=== PATIENT | female | born 1990 | race Caucasian/White ===

== ENCOUNTER 2021-11-24 15:24 | Inpatient (IN) | payer OTHER ==
[~2021-11-24] VITALS: Ht 157.5 cm; Wt 59.0 kg
[2021-11-24] MEDS ORDERED: PRENATAL TABLE1 EAC3 (22:17)
[2021-11-24] MEDS ORDERED: FOLIC ACID0.8 M1 (22:18)
== END 2021-11-26 08:39 | disposition home or self-care (01) | DRG 833 ==
LOC: NST 15:24 → LDR 17:48 → OB/GYN 11-25 13:47
PROVIDERS: ADMIT Obstetrics & Gynecology; ATTEND Obstetrics & Gynecology
PROC: 4A1HXCZ Monitoring of Products of Conception, Cardiac Rate, External Approach (ICD-10-PCS; principal; 2021-11-24)
DX: O47.03 False labor before 37 completed weeks of gestation, third trimester (principal); Z3A.35 35 weeks gestation of pregnancy; Z20.822 Contact with and (suspected) exposure to COVID-19

== ENCOUNTER 2021-12-03 08:17 | Outpatient (CLI) | payer OTHER ==
[~2021-12-03 08:17] MED LIST: FOLIC ACID0.8 M1; PRENATAL TABLE1 EAC3
== END 2021-12-03 08:57 | disposition home or self-care (01) ==
LOC: NST 08:17
PROVIDERS: ATTEND Obstetrics & Gynecology
DX: Z23 Encounter for immunization (principal)

== ENCOUNTER 2021-12-10 10:50 | Outpatient (CLI) | payer OTHER | END 2021-12-10 11:34 | disposition home or self-care (01) | LOC: NST 10:50 | PROVIDERS: ATTEND Obstetrics & Gynecology Maternal & Fetal Medicine | DX: Z34.83 Encounter for supervision of other normal pregnancy, third trimester (principal) ==

== ENCOUNTER 2021-12-27 00:15 | Outpatient (CLI) | payer OTHER ==
[2021-12-27] MEDS ORDERED: IRON236 MG (00:34)
== END 2021-12-27 07:39 | disposition home or self-care (01) ==
LOC: OBS/DEL 00:15
PROVIDERS: ATTEND Obstetrics & Gynecology
DX: O26.893 Other specified pregnancy related conditions, third trimester (principal); Z3A.39 39 weeks gestation of pregnancy; R10.2 Pelvic and perineal pain

== ENCOUNTER 2021-12-29 06:35 | Inpatient (IN) | payer OTHER ==
[~2021-12-29] VITALS: Ht 157.5 cm; Wt 59.0 kg
[~2021-12-29 06:35] MED LIST changes: +IRON236 MG
== END 2021-12-31 13:06 | disposition home or self-care (01) | DRG 807 ==
LOC: LDR 06:35 → OB/GYN 08:41
PROVIDERS: ADMIT Obstetrics & Gynecology; ATTEND Obstetrics & Gynecology
PROC: 10E0XZZ Delivery of Products of Conception, External Approach (ICD-10-PCS; principal; 2021-12-29)
PROC: 4A1HXCZ Monitoring of Products of Conception, Cardiac Rate, External Approach (ICD-10-PCS; 2021-12-29)
DX: O80 Encounter for full-term uncomplicated delivery (principal); Z37.0 Single live birth; Z3A.39 39 weeks gestation of pregnancy; Z20.822 Contact with and (suspected) exposure to COVID-19